=== PATIENT | male | born 1965 | race Caucasian/White ===

== ENCOUNTER 2023-06-18 10:59 | Emergency (ER) | payer OTHER ==
[~2023-06-18] VITALS: Ht 193 cm; Wt 95.2 kg
[2023-06-18 11:09] VITALS: BP 134/94
[2023-06-18] MEDS ORDERED: Prozac20 MG PO (11:13)
[2023-06-18] MEDS ORDERED: ZYRTEC10 M2 PO (11:13)
[2023-06-18] MEDS ORDERED: TESTOSTERONE50 MG IL (11:13)
[2023-06-18] MEDS ORDERED: Prednisone20 MG PO (12:43)
== END 2023-06-18 13:17 | disposition home or self-care (01) ==
LOC: ER 10:59
DX: T63.461A Toxic effect of venom of wasps, accidental (unintentional), initial encounter (principal); Z91.030 Bee allergy status; Z91.010 Allergy to peanuts
CPT/HCPCS: J2930; J7030